=== PATIENT | male | born 1975 | race Asian ===

== ENCOUNTER 2025-01-30 11:08 | Emergency (ER) | payer SELFPAY ==
[2025-01-30] MEDS: Diphtheria,Pertussis(Acell),Tetanus Vaccine 0.5 ML Syringe IM ONE (12:12)
== END 2025-01-30 12:17 | disposition home or self-care (01) ==
LOC: DL.ED 11:08
DX: S60.352A Superficial foreign body of left thumb, initial encounter (principal); W45.8XXA Other foreign body or object entering through skin, initial encounter; Z23 Encounter for immunization
CPT/HCPCS: 90471; 90715; 99283; 99283-25